=== PATIENT | male | born 1940 | race Caucasian/White ===

== ENCOUNTER → 2018-05-28 | Outpatient (CLI) | payer OTHER | LOC: CIMAGING 07:08 | PROVIDERS: ATTEND Internal Medicine | DX: K74.69 Other cirrhosis of liver (principal); R16.1 Splenomegaly, not elsewhere classified | CPT/HCPCS: 76700-PO ==

== ENCOUNTER → 2018-12-14 | Outpatient (CLI) | payer OTHER, MEDICAID | LOC: CIMAGING 09:20 | PROVIDERS: ATTEND Internal Medicine | DX: J84.9 Interstitial pulmonary disease, unspecified (principal); K74.69 Other cirrhosis of liver; R05 Cough | CPT/HCPCS: 71250-PO; 76700-PO ==